=== PATIENT | female | born 1980 | race Caucasian/White ===

== ENCOUNTER → 2016-04-20 08:17 | Outpatient (CLI) | payer OTHER, BC, MEDICAID ==
[2016-03-08 06:27] VITALS: BMI 33.7
[~2016-04-20 08:17] MED LIST: IBUPROFEN600 MG PO; PERCOCET 5-3251 TAB PO; PRENATAL COMPLE1 TAB PO
== END | disposition home or self-care (01) ==
LOC: D.CT 08:17
DX: G89.18 Other acute postprocedural pain (principal)

== ENCOUNTER → 2018-01-01 13:59 | Outpatient (CLI) | payer BC ==
[2016-03-08 06:27] VITALS: BMI 33.7
== END | disposition home or self-care (01) ==
LOC: D.MRI 13:59
DX: M25.511 Pain in right shoulder (principal)

== ENCOUNTER 2018-04-17 09:25 | Day surgery (SDC) | payer BC ==
[2018-04-16 10:34] LABS: HEMATOCRIT 39.6 % (36.0-48.0); HEMOGLOBIN 13.5 g/dL (12-16); MCH 28.9 pg (26.0-34.0); MCHC 34.1 g/dL (31.0-37.0); MCV 84.8 fL (80.0-100.0); MEAN PLATELET VOLUME 10.9 fL (7.4-10.4); RBC 4.67 10x6/uL (4.00-5.40); RDW 12.8 % (11.5-14.5); WBC 7.2 10x3/uL (4.8-10.8)
[2018-04-16 10:43] LABS: CALC OSMOLALITY 276 mosm/kg (275-300); CALCIUM 8.6 mg/dL (8.5-10.1); CARBON DIOXIDE 25.6 mmol/L (21.0-32.0); CHLORIDE - SERUM 102 mmol/L (98-107); CREATININE - SERUM 0.8 mg/dL (0.6-1.3); GLUCOSE 110 mg/dL (74-106); POTASSIUM - SERUM 3.9 mmol/L (3.5-5.1); SODIUM 139 mmol/L (136-145); UREA NITROGEN 8 mg/dL (7-18); eGFR NON AFRICAN AMERICAN 85 mL/min (90-120)
[~2018-04-17] VITALS: Ht 162.6 cm; Wt 79.4 kg
[2018-04-17 09:41] VITALS: BP 136/85; Ht 162.6 cm; Wt 79.4 kg
[2018-04-17] MEDS ORDERED: OXYCODONE HCL5 M1 PO (15:25)
[2018-04-17] MEDS ORDERED: VISTARIL50 MG PO (15:27)
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
--- NOTE | 2018-04-17 16:30 | NUR ---
EATING FL TRAY.
--- NOTE | 2018-04-17 17:00 | NUR ---
TOLERATED FL TRAY. IV DC'D WITH CATHETER INTACT,
--- NOTE | 2018-04-17 17:15 | NUR ---
WRITTEN AND VERBAL DC INST. GIVEN TO PT ALONG WITH RX. VERBALIZED UNDERSTANDING.
--- NOTE | 2018-04-17 17:30 | NUR ---
DC'D HOME WITH FAMILY VIA PRIVATE VEHICLE. TAKEN TO VEHICLE VIA WC. STABLE AT TIME OFND.
--- NOTE | 2018-04-20 06:43 | OP ---
PATIENT NAME: YOSVANY BAPTISTE MEDICAL RECORD: [id number] :80 LOCATION:[facility] ADMISSION DATE: SURGEON: MYCHAL MAHONEY DO DATE OF OPERATION: 04/17/2018 PROCEDURE PERFORMED: Right shoulder arthroscopy with distal clavicle excision and subacromial decompression and biceps tenodesis. PREOPERATIVE DIAGNOSES: Right shoulder superior labrum anterior and posterior tear, type 2 acromion, subacromial impingement and acromioclavicular joint arthritis. POSTOPERATIVE DIAGNOSES: Right shoulder superior labrum anterior and posterior tear, type 2 acromion, subacromial impingement and acromioclavicular joint arthritis. INDICATIONS: Ms. Baptiste is a 38-year-old female that presented to my office a couple months ago complaining of right shoulder pain and pain with any overhead moving or lifting. She has had injections that did not help as well as physical therapy. She had an MRI that demonstrated a type 2 acromion and some AC joint arthritis as well as a labral tear what appeared to be a SLAP tear in her shoulder joint. I told her that we could fix it, but she was not ready, said that we can get her some relief with arthroscopy and she was okay with that. She was informed of the risks and benefits of the procedure including infection, bleeding, damage to nerves and vessels, need for further surgery, continued pain and even . She signed the consent. SURGEON: Mychal Mahoney DO DESCRIPTION OF THE PROCEDURE: The patient was given block by anesthesia in the preoperative area, taken to the operative suite, laid in the left lateral decubitus position with the right arm up with an axillary roll under the axilla. She was given 600 mg of clindamycin, two grams of Ancef preoperatively. The right shoulder was prepped and draped in sterile fashion. A timeout was performed, everyone was agreeance with the correct side, site, patient and procedure. After that had been done, the shoulder was injected with 40 mL of normal saline through the posterior portal into the joint and a #11 blade scalpel was then used after that was removed to establish a posterior portal. The trocar was then entered in the shoulder joint. The camera was turned on. The supraspinatus, subscapularis, and infraspinatus tendons were inspected. There were no tears seen in them. However, there was a SLAP tear noted, albeit at the very superior labrum. Anterior portal was then established. An 18-gauge needle with an 11-blade scalpel and then the burner was brought in and a biceps tenotomy was performed at that time. There were no loose bodies seen in the inferior shoulder gutter and the cartilage appeared to be pristine. The scope was then switched into the subacromial space. There was quite a bit of inflammation and bursa inflamed there. A lateral portal was established with an 18-gauge spinal needle and 11-blade scalpel and the shaver was brought in to clean that out. A bursectomy was done. There was a very large type 2 acromion seen at that time. The bur was brought in and the distal acromion was taken off distal lateral and smoothed out. The AC joint was then dissected out with the burner and the part of the distal clavicle was removed in order to open up the AC joint. Further bursectomy was done at that time and the rotator cuff was inspected on the bursal side and no tear was seen in that. Attention was then drawn to the anterior humerus and an incision was made. The dissection was made OPERATIVE REPORT [id number] YOSVANY BAPTISTE USHA down to the deltopectoral area where the deltoid and the pec meet and the deltoid was taken and retracted. A small incision was made through the intact tendon and long head of the biceps tendon was pulled out through that whipstitch and a unicortical button was placed into the humerus and cinched down after the tendon had been whipstitched and then tied and a free needle was used to go through the tendon and tied down again. The excess tendon and suture was cut at that time and then all of the portal sites were irrigated. The biceps tenodesis site was closed with 2-0 Vicryl in an inverted interrupted fashion and 4-0 Monocryl ran on the skin and each of the 3 portal sites were closed with 4-0 Monocryl in an inverted interrupted fashion. Dermabond was placed on all of them. Telfa and Tegaderm placed on that. The patient was awakened and taken to recovery in stable condition and placed in a sling. BLOOD LOSS: Minimal. COMPLICATIONS: None. TRANSINT:[id number] Voice Confirmation ID: [id number] DOCUMENT ID: [id number] MYCHAL MAHONEY DO at 0643 CC: [id number] DICTATION DATE: 04/17/18 1537 G[employer] OIL CHECKER: 04/17/182027 [facility] 04/17/18 [id number] [place] [address]
== END 2018-04-17 17:30 | disposition home or self-care (01) ==
LOC: D.OPS 09:25
PROVIDERS: Anesthesiology
DX: S43.431A Superior glenoid labrum lesion of right shoulder, initial encounter (principal); M75.41 Impingement syndrome of right shoulder; M13.811 Other specified arthritis, right shoulder; Z01.812 Encounter for preprocedural laboratory examination

== ENCOUNTER 2019-09-03 06:00 | Day surgery (SDC) | payer BC ==
[2019-08-31 10:10] LABS: HEMATOCRIT 33.8 % (36.0-48.0); HEMOGLOBIN 10.5 g/dL (12-16); MCH 26.2 pg (26.0-34.0); MCHC 31.1 g/dL (31.0-37.0); MCV 84.3 fL (80.0-100.0); MEAN PLATELET VOLUME 10.1 fL (7.4-10.4); RBC 4.01 10x6/uL (4.00-5.40); RDW 13.4 % (11.5-14.5); WBC 8.3 10x3/uL (4.8-10.8)
[~2019-09-03] VITALS: Ht 264.2 cm; Wt 79.4 kg
[~2019-09-03 06:00] MED LIST changes: +ADIPEX-P37.5 MG PO; +AMBIEN5 MG PO; +ELAVIL25 MG PO; +KENALOG 0.1 % 115 GM TOPICAL; +KLONOPIN0.5 MG PO; +NAPROSYN500 MG PO; +OXYCODONE HCL5 M1 PO; +TRINTELLIX5 MG PO; +VISTARIL50 MG PO
[2019-09-03 07:52] VITALS: BP 134/88; Ht 264.2 cm; Wt 79.4 kg
--- NOTE | 2019-09-03 12:50 | NUR ---
1210 IV DC'D. CATHETER TIP INTACT. NO BLEEDING AT SITE. BANDAID APPLIED.
--- NOTE | 2019-09-03 12:51 | NUR ---
1215 REVIEWED DISCHARGE INSTRUCTIONS WITH PT AND HER CORRECTIONAL CASE MANAGER. QUESTIONS ANSWERED AND BOTH VOICED UNDERSTANDING OF INSTRUCTIONS.
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
== END 2019-09-03 12:26 | disposition home or self-care (01) ==
LOC: D.OPS 06:00 → D.PAN 08:00 → D.OPS 08:45
PROVIDERS: Anesthesiology; ATTEND Orthopaedic Surgery
DX: S43.004A Unspecified dislocation of right shoulder joint, initial encounter (principal); S43.401A Unspecified sprain of right shoulder joint, initial encounter; X58.XXXA Exposure to other specified factors, initial encounter